=== PATIENT | female | born 1990 | race Caucasian/White ===

== ENCOUNTER 2020-01-23 22:43 | Emergency (ER) | payer OTHER ==
[~2020-01-23] VITALS: Ht 154.9 cm; Wt 72.0 kg
[~2020-01-23 22:43] MED LIST: PREN1CAP13 PO
[2020-01-23] MEDS ORDERED: DIPHENHYDRAMINE 25MG CAPSULE PO ONE (23:45)
[2020-01-23] MEDS ORDERED: PREDNISONE 20MG TABLET PO ONE (23:45)
[2020-01-23] MEDS ORDERED: FAMOTIDINE 20MG TABLET PO ONE (23:45)
[2020-01-24 01:31] LABS: CHLORIDE 106 mEq/L (98-107)
[2020-01-24 02:15] VITALS: BP 117/81
== END 2020-01-24 02:10 | disposition home or self-care (01) ==
LOC: ER 22:43
DX: O26.891 Other specified pregnancy related conditions, first trimester (principal); Z3A.00 Weeks of gestation of pregnancy not specified
CPT/HCPCS: 36415; 80053; 93005; 99284; J7512; Q0163